=== PATIENT | male | born 1955 | race Caucasian/White ===

== ENCOUNTER → 2017-05-04 | Outpatient (REF) | payer BC ==
[2017-05-04 14:40] LABS: ALBUMIN 3.6 GM/DL (3.2-5.2); ALBUMIN/GLOBULIN RATIO 1.13 (1.00-1.93); ALKALINE PHOSPHATASE 58 U/L (45-117); ALT/SGPT 30 U/L (12-78); ANION GAP 6 MEQ/L (8-16); AST/SGOT 16 U/L (15-37); BILIRUBIN,TOTAL 0.6 MG/DL (0.2-1.0); BLOOD UREA NITROGEN 13 MG/DL (7-18); CALCIUM LEVEL 8.6 MG/DL (8.8-10.2); CARBON DIOXIDE LEVEL 29 MEQ/L (21-32); CHLORIDE LEVEL 106 MEQ/L (98-107); CHOLESTEROL LEVEL 224 MG/DL (<200); CREATININE FOR GFR 0.97 MG/DL (0.70-1.30); FREE T4 0.81 NG/DL (0.76-1.46); GLOMERULAR FILTRATION RATE > 60.0 (>49); GLUCOSE, FASTING 89 MG/DL (80-110); POTASSIUM SERUM 4.3 MEQ/L (3.5-5.1); SODIUM LEVEL 141 MEQ/L (136-145); TOTAL PROTEIN 6.8 GM/DL (6.4-8.2); TRIGLYCERIDES LEVEL 155 MG/DL (<150)
== END ==
LOC: M LABDRAW1 10:06
PROVIDERS: ATTEND Emergency Medicine
DX: E78.5 Hyperlipidemia, unspecified (principal); E03.9 Hypothyroidism, unspecified

== ENCOUNTER 2018-05-17 10:05 | Day surgery (SDC) | payer BC ==
[2018-05-17] MEDS: NS 1,000 ML IV (10:00)
[2018-05-17] MEDS ORDERED: PROPOFOL 200 MG/20 ML VIAL As Ordered (11:24)
== END 2018-05-17 11:52 | disposition home or self-care (01) ==
LOC: M OPP 10:05
DX: Z12.11 Encounter for screening for malignant neoplasm of colon (principal); K64.0 First degree hemorrhoids; D12.6 Benign neoplasm of colon, unspecified; R06.83 Snoring; Z87.891 Personal history of nicotine dependence
CPT/HCPCS: 45380

== ENCOUNTER → 2019-03-17 | Outpatient (REF) | payer BC ==
[~2019-03-17] MED LIST: VITA50005 PO
[2019-03-17 12:56] LABS: ALBUMIN 3.6 GM/DL (3.2-5.2); ALT/SGPT 33 U/L (12-78); BILIRUBIN,TOTAL 0.8 MG/DL (0.2-1.0); BLOOD UREA NITROGEN 14 MG/DL (7-18); CALCIUM LEVEL 8.3 MG/DL (8.8-10.2); CARBON DIOXIDE LEVEL 29 MEQ/L (21-32); CHLORIDE LEVEL 107 MEQ/L (98-107); CHOLESTEROL LEVEL 224 MG/DL (<200); CHOLESTEROL RISK RATIO 4.392 (<5); CREATININE FOR GFR 0.91 MG/DL (0.70-1.30); FREE T4 0.93 NG/DL (0.76-1.46); GLOMERULAR FILTRATION RATE > 60.0 (>49); GLUCOSE, FASTING 93 MG/DL (70-100); HDL CHOLESTEROL 51 MG/DL (>40); LDL CHOLESTEROL 150 MG/DL (<100); NON-HDL-C 173 MG/DL; POTASSIUM SERUM 4.3 MEQ/L (3.5-5.1); SODIUM LEVEL 141 MEQ/L (136-145); TOTAL PROTEIN 7.1 GM/DL (6.4-8.2); TRIGLYCERIDES LEVEL 113 MG/DL (<150)
== END ==
LOC: M LABDRAW1 11:36
PROVIDERS: ATTEND Physician Assistant
DX: E78.2 Mixed hyperlipidemia (principal); E03.9 Hypothyroidism, unspecified

== ENCOUNTER → 2020-04-19 | Outpatient (CLI) | payer BC, MEDICARE ==
[2020-04-19 13:04] LABS: BASO # 0.1 10^3/uL (0.0-0.2); BASO % 1.1 % (0.0-1.0); EOS # 0.4 10^3/uL (0.0-0.5); EOS % 6.4 % (0.0-3.0); HEMATOCRIT 41.9 % (42.0-52.0); HEMOGLOBIN 13.2 g/dl (13.5-17.5); LYMPH # 1.7 10^3/uL (1.5-5.0); LYMPH % 26.2 % (24.0-44.0); MEAN CORPUSCULAR HEMOGLOBIN 29.8 pg (27.0-33.0); MEAN CORPUSCULAR HGB CONC 31.5 g/dl (32.0-36.5); MEAN CORPUSCULAR VOLUME 94.6 fl (80.0-96.0); MONO # 0.6 10^3/uL (0.0-0.8); MONO % 8.7 % (0.0-5.0); NEUTROPHILS # 3.7 10^3/uL (1.5-8.5); NEUTROPHILS % 56.7 % (36.0-66.0); PLATELET COUNT, AUTOMATED 241 10^3/uL (150-450); RED BLOOD COUNT 4.43 10^6/uL (4.30-6.10); WHITE BLOOD COUNT 6.6 10^3/uL (4.0-10.0)
[2020-04-19 13:42] LABS: ALBUMIN 3.8 GM/DL (3.2-5.2); ALT/SGPT 40 U/L (12-78); BILIRUBIN,TOTAL 0.6 MG/DL (0.2-1.0); BLOOD UREA NITROGEN 13 MG/DL (7-18); CARBON DIOXIDE LEVEL 30 MEQ/L (21-32); CHLORIDE LEVEL 108 MEQ/L (98-107); CHOLESTEROL LEVEL 244 MG/DL (<200); CHOLESTEROL RISK RATIO 4.603 (<5); CREATININE FOR GFR 1.02 MG/DL (0.70-1.30); FREE T4 0.92 NG/DL (0.76-1.46); GLOMERULAR FILTRATION RATE > 60.0 (>49); GLUCOSE, FASTING 82 MG/DL (70-100); HDL CHOLESTEROL 53 MG/DL (>40); LDL CHOLESTEROL 174 MG/DL (<100); NON-HDL-C 191 MG/DL; POTASSIUM SERUM 4.7 MEQ/L (3.5-5.1); SODIUM LEVEL 141 MEQ/L (136-145); TOTAL 25(OH) VITAMIN D 22.1 NG/ML (30.0-100.0); TOTAL PROTEIN 7.4 GM/DL (6.4-8.2); TRIGLYCERIDES LEVEL 86 MG/DL (<150)
== END ==
LOC: M WUC 10:33
PROVIDERS: ATTEND Physician Assistant
DX: E03.9 Hypothyroidism, unspecified (principal); I10 Essential (primary) hypertension; E55.9 Vitamin D deficiency, unspecified; K21.9 Gastro-esophageal reflux disease without esophagitis

== ENCOUNTER → 2021-04-09 | Outpatient (CLI) | payer MEDICARE ==
[2021-04-09 17:31] LABS: ALT/SGPT 37 U/L (12-78); BILIRUBIN,TOTAL 0.4 MG/DL (0.2-1.0); BLOOD UREA NITROGEN 12 MG/DL (7-18); CARBON DIOXIDE LEVEL 27 MEQ/L (21-32); CHLORIDE LEVEL 108 MEQ/L (98-107); CHOLESTEROL LEVEL 228 MG/DL (<200); CHOLESTEROL RISK RATIO 4.145 (<5); CREATININE FOR GFR 0.88 MG/DL (0.70-1.30); FREE T4 0.91 NG/DL (0.76-1.46); GLOMERULAR FILTRATION RATE > 60.0 (>49); GLUCOSE, FASTING 93 MG/DL (70-100); HDL CHOLESTEROL 55 MG/DL (>40); LDL CHOLESTEROL 155 MG/DL (<100); NON-HDL-C 173 MG/DL; POTASSIUM SERUM 4.2 MEQ/L (3.5-5.1); SODIUM LEVEL 141 MEQ/L (136-145); TOTAL PROTEIN 7.2 GM/DL (6.4-8.2); TRIGLYCERIDES LEVEL 89 MG/DL (<150)
== END ==
LOC: M WUC 11:22
PROVIDERS: ATTEND Nurse Practitioner Family
DX: E78.2 Mixed hyperlipidemia (principal); E03.9 Hypothyroidism, unspecified; I10 Essential (primary) hypertension

== ENCOUNTER → 2021-08-19 | Outpatient (CLI) | payer MEDICARE ==
[~2021-08-19] MED LIST changes: +OMEP-221 PO
--- NOTE | 2021-08-19 14:54 | REP ---
INDICATION: HX OF NICOTINE DEPENDENCE. COMPARISON: 05/09/2020 also low-dose screening CT of the lungs TECHNIQUE: Axial noncontrast images from the thoracic inlet to the upper abdomen using low-dose lung screening technique (LDCT). As per the protocol only lung window images were sent to the read station for interpretation. FINDINGS: No abnormal nodules have developed. There are a few curvilinear densities in the lung bases likely subsegmental atelectatic changes. Grossly, the mediastinum and pulmonary peggy are unchanged. Grossly, the imaged upper abdomen and imaged osseous structures are unchanged. IMPRESSION: Stable lung rads category 1 exam. No abnormal nodules. Follow-up in 1 year. <Electronically signed by Maik Benavides > 08/19/21 0696
== END ==
LOC: M RAD 12:10
PROVIDERS: ATTEND Nurse Practitioner Family
DX: Z12.2 Encounter for screening for malignant neoplasm of respiratory organs (principal); Z87.891 Personal history of nicotine dependence

== ENCOUNTER → 2021-08-21 | Outpatient (CLI) | payer MEDICARE | LOC: M LABSMTC 10:11 | PROVIDERS: ATTEND Anesthesiology | DX: Z01.812 Encounter for preprocedural laboratory examination (principal); Z20.822 Contact with and (suspected) exposure to COVID-19 ==

== ENCOUNTER 2021-08-26 09:38 | Day surgery (SDC) | payer MEDICARE ==
[~2021-08-26] VITALS: Ht 185.4 cm; Wt 101.6 kg
[~2021-08-26 09:38] MED LIST changes: +NS 1,000 ML IV ONE
--- OUTSIDE RECORDS SUMMARY | 2021-08-26 09:41 | CCD | Continuity of Care Document ---
Author Author Julian [facility] Organization Unknown Address [address] [place] [address] Phone [phone] Care Team Providers Care Educational Psychology Teacher Name Role Phone [facility] - [facility] [phone] Problems Active Problems Provider Date Mixed hyperlipidemia Marko Spence M.D. Onset: 01/02 Tobacco user Jose Cao PA Onset: 01/02/2011 Gastroesophageal reflux disease Marko Spence M.D. O nset: 06/06/2013 Testicular hypofunction Marko Spence M.D. Onset: Hypothyroidism Marko Spence M.D. Onset: 2012 Vitamin D deficiency Marko Spence M.D. Onset: 10/30 Social History Type Date Description Comments Sex Unknown Tobacco Use Start: Unknown End: Unknown Current Ciga rette Smoker Packs Daily 1/2 Tobacco Use Start: Unknown Never Used Smokeless Tobacco ETOH Use Consumes 6 beers per week Tobacco Use Start: Unknown End: Unknown Patient is a former smoker quit 08/06 Recreational Drug Use Never Used Drugs Smoking Status Reviewed: 05/28/21 Patient is a former smoker qu it 08/06 Exercise Type/Frequency Exercises regularly Sun Exposure Minimum amount of sun exposure Seat Belt/Car Seat Always uses seat belt Guns in Home Yes, Locked Up Smoke Alarms Yes Smoke Alarms Carbon Monoxide Detector: Yes Allergies, Adverse Reactions, Alerts Active Allergies Criticality Reaction | Severity Comments Date NKDA Unable to assess criticality 08/29/2005 Environmental Unable to assess criticality pollen 05/07/2010 Medications Active Medications SIG Qnty Indications Ordering Provide r Date Omeprazole 40mg Capsules DR take one capsule by mouth every day for heartburn/acid reflux as needed 90caps K21.9 Rosie Luna, STUDENT LIFE VICE PRESIDENT 03/31/2019 History Medications Amoxicillin/Clavulanate Potassium 875-125mg Tablets 1 by mouth twice a day for 10 days 20tabs H66.92 Swapna cespedes RosieLEANN 05/28/2021 - 06/07/2021 Immunizations CPT Code Status Date Vaccine Lot # [id number] Given 08/02/2021 Influenza Virus Vaccine, Rodrigo drivalent,multidose vial [id number] Given 08/02/2021 Influenza Virus Vaccine, Rodrigo drivalent,multidose vial [id number] 15129 Given 04/15/2021 Pneumococcal Vaccine [id number] 84975 Given 01/23/2021 Covid-19 Sadi & Sadi [id number] Given 04/23/2020 Prevnar 13 For Adults [id number] [id number] Given 07/27/2019 Influenza Virus Vaccine, Rodrigo drivalent,multidose vial [id number] 67586 Given 02/03/2017 Boostrix (Tdap) Tetnus, Diphtheria Toxoids & Acellular Pertussis [id number] Vital Signs Date Vital Result Comment 08/02/2021 12:24pm Body Temperature 97.8 F 05/28/2021 3:18pm BP Systolic 133 mmHg BP Diastolic 71 mmHg Heart Rate 55 /min Body Temperature 97.8 F Respiratory Rate 16 /min Height 72.75 inches 6'0.75" Weight 226.38 lb O2 % BldC Oximetry 98 % Peak Expiratory Flow Rate 534 Estimated Peak Flow Rate [place] Body Weight 178 lb BMI (Body Mass Index) 30.1 kg/m2 Results Test Acquired Date Facility Test Result H/L Range Note TSH And T4 Free ([facility]) 04/09/2021 [facility] [phone] Thyroid Stimulating Hormone 2.320 uIU/ML Normal 0. 358-3.740 Free T4 0.91 ng/dL Normal 0.76-1.46 Comprehensive Metabolic Profil 04/09/2021 [facility] [phone] Glucose, Fasting 93 mg/dL Normal 70-100 Blood Urea Nitrogen 12 mg/dL Normal 7-18 Creatinine For GFR 0.88 mg/dL Normal 0.70-1.30 Glomerular Filtration Rate > 60.0 Normal >49 1 Sodium Level 141 mEq/L Normal 136-145 Potassium Serum 4.2 mEq/L Normal 3.5-5.1 Chloride Level 108 mEq/L High 98-107 Carbon Dioxide Level 27 mEq/L Normal 21-32 Anion Gap 6 mEq/L Low 8-16 Calcium Level 9.0 mg/dL Normal 8.8-10.2 Ast/Sgot 24 U/L Normal 7-37 Alt/SGPT 37 U/L Normal 12-78 Alkaline Phosphatase 58 U/L Normal 45-117 Bilirubin,Total 0.4 mg/dL Normal 0.2-1.0 Total Protein 7.2 GM/DL Normal 6.4-8.2 Albumin 4.0 GM/DL Normal 3.2-5.2 Albumin/Globulin Ratio 1.3 Normal Lipid Panel 04/09/2021 [facility] nter [phone] Triglycerides Level 89 mg/dL Normal <150 Cholesterol Level 228 mg/dL High <200 HDL Cholesterol 55 mg/dL Normal >40 LDL Cholesterol 155 mg/dL High <100 Non-HDL-C 173 mg/dL Normal Cholesterol Risk Ratio 4.145 Normal <5 1 Units are mL/min/1.73 m2 Chronic Kidney Disease Staging per NKF: Stage I & II GFR >=60 Normal to Mildly Decreased Stage III GFR 30-59 Moderately Decreased Stage IV GFR 15-29 Severely Decreased Stage V GFR <15 Very Little GFR Left ESRD GFR <15 on TELEPHOTO ENGINEER Procedures Date Code Description Status 05/28/2021 25642 Office/Outpatient Established Lo w MDM 20-29 Min Completed 04/15/2021 00262 Office/Outpatient Established Mo d MDM 30-39 Min Completed Medical Devices Description No Information Available Encounters Type Date Location Provider Dx Diagnosis Office Visit 05/28/2021 3:45p Main Office Rosie Luna FNP H66.9 2 Otitis media, unspecified, left ear Office Visit 04/15/2021 10:15a Main Office Rosie Luna FNP Z00.0 0 Encntr for general adult medical exam w/o abnormal findings E78.2 Mixed hyperlipidemia K21.9 Gastro-esophageal reflux dis ease without esophagitis M17.11 Unilateral primary osteoarth ritis, right knee Z23 Encounter for immunization Assessments Date Code Description Provider 05/28/2021 H66.92 Otitis media, unspecified, left ear Rosie Luna FNP 04/15/2021 Z00.00 Encounter for genera l adult medical examination without abnormal findings Rosie Luna FNP 04/15/2021 E78.2 Mixed hyperlipidemia Jessica Luna FNP 04/15/2021 K21.9 Gastro-esophageal reflux disease without esophagitis Rosie Luna FNP 04/15/2021 M17.11 Unilateral primary osteoarthriti s, right knee Rosie Luna FNP 04/15/2021 Z23 Encounter for immunization Rosie Orozco FNP Plan of Treatment Future Appointment(s):* 04/16/2022 10:15 am - Rosie Luna FNP at Main Office Functional Status Functional Condition Comment Date Status Independent with all ADL's Activ e .None Active Independent with all IADL's Acti ve Mental Status Mental Condition Comment Date Status None Active Referrals Description No Information Available
--- OUTSIDE RECORDS SUMMARY | 2021-08-26 09:41 | CCD ---
Continuity of Care Document (CCD) Created on: 05/28/2021 MylesJulian lee External Reference #: [id number] : [id number] Sex: Male Author Author Julian [facility] Organization Unknown Address [address] [place] [address] Phone [phone] Care Team Providers Care Carding Machine Feeder Name Role Phone [facility] - [facility] [phone] Problems Active Problems Provider Date Mixed hyperlipidemia [...] Yes Allergies, Adverse Reactions, Alerts Active Allergies Reaction Severity Comments Date NKDA 08/29/2005 Environmental pollen 05/07/2010 Medications Active Medications SIG Qnty Indications Ordering Provide r Date Amoxicillin/Clavulanate Potassium 875-125mg Tablets 1 by mouth twice a day for 10 days 20tabs H66.92 Rosie Barcenas ch, FNP 05/28/[address] take one capsule by mouth every day for heartburn/acid reflux as needed 90caps K21.9 Rosie Luna FNP 03/31/2019 Immunizations CPT Code Status Date Vaccine Lot # [id number] Given 04/15/2021 Pneumococcal Vaccine [id number] Given 01/23/2021 Covid-19 Sadi & Sadi 51837 Given 04/23/2020 Prevnar 13 For Adults [id number] 53341 Given 07/27/2019 Influenza Virus Vaccine, Quadrivalent,age 3 and up,multidose vial [id number] 51155 Given 02/03/2017 Boostrix (Tdap) Tetnus, Diphtheria Toxoids & Acellular Pertussis [id number] Vital Signs Date Vital Result Comment 05/28/2021 3:18pm BP Systolic 133 mmHg BP Diastolic 71 mmHg Heart Rate 55 /min Body Temperature 97.8 F Respiratory Rate 16 /min Height 72.75 inches 6'0.75" Weight 226.38 lb O2 % BldC Oximetry 98 % Peak Expiratory Flow Rate 534 Estimated Peak Flow Rate [place] Body Weight 178 lb BMI (Body Mass Index) 30.1 kg/m2 04/15/2021 10:12am BP Systolic 122 mmHg BP Diastolic 72 mmHg Heart Rate 56 /min Body Temperature 97.0 F Respiratory Rate 17 /min Height 72.75 inches 6'0.75" Weight 225.12 lb O2 % BldC Oximetry 99 % Peak Expiratory Flow Rate 534 Estimated Peak Flow Rate [place] Body Weight 178 lb BMI (Body Mass Index) 29.9 kg/m2 Results Test Acquired Date Facility Test Result H/L Range Note TSH And T4 Free ([facility]) 04/09/2021 [facility] [phone] Thyroid Stimulating Hormone 2.320 uIU/ML Normal 0. 358-3.740 Free T4 0.91 ng/dL Normal 0.76-1.46 Comprehensive Metabolic Profil 04/09/2021 [facility] [phone] Glucose, Fasting 93 mg/dL Normal 70-100 Blood [...] Albumin/Globulin Ratio 1.3 Normal Lipid Panel 04/09/2021 [facility] nter [phone] Triglycerides Level 89 mg/dL Normal <150 Cholesterol [...] Little GFR Left ESRD GFR <15 on PUBLIC BATH ATTENDANT Procedures Date Code Description Status 05/28/2021 45609 Office/Outpatient Established Lo w MDM 20-29 Min Completed 04/15/2021 50962 Office/Outpatient Established Mo d MDM 30-39 Min [...] adult medical examination without abnormal findings Rosie Luan FNP 04/15/2021 E78.2 Mixed hyperlipidemia Jessica Luna FNP 04/15/2021 K21.9 Gastro-esophageal reflux disease without esophagitis Rosie Luna FNP 04/15/2021 M17.11 Unilateral primary osteoarthriti s, right knee Rosie Luna FNP 04/15/2021 Z23 Encounter for immunization Rosie Orozco FNP Plan of Treatment Future Appointment(s):* 04/16/2022 10:15 am - Rosie Luna FNP at Main Office 05/28/2021 - Rosie Luna FNP* H66.92 Otitis media, unspecified, left ear* New Medication:* Amoxicillin/Clavulanate Potassium 875-125 mg - 1 by mouth twice a day for 10 days Functional Status Functional Condition Comment Date Status Independent with all ADL's Activ e .None Active Independent with all IADL's Acti ve Mental Status Mental Condition Comment Date Status None Active Referrals Description No Information Available
--- OUTSIDE RECORDS SUMMARY | 2021-08-26 09:41 | CCD ---
Author Author [facility] Organization [facility] Address Unknown Phone Unavailable Care Team Providers Care Personal Vehicle Advisor Name Role Phone Pleskach, Rosie NUT SORTER Unavailable Unavailable Pleskach, Rosie NUT SORTER Unavailable Unavailable Pleskach, Rosie NUT SORTER Unavailable Unavailable Pleskach, Rosie NUT SORTER Unavailable Unavailable Pleskach, Rosie NUT SORTER Unavailable Unavailable Pleskach, Rosie NUT SORTER Unavailable Unavailable Pleskach, Rosie NUT SORTER Unavailable Unavailable Pleskach, Rosie NUT SORTER Unavailable Unavailable Pleskach, Rosie NUT SORTER Unavailable Unavailable Pleskach, Rosie NUT SORTER Unavailable Unavailable Pleskach, Rosie NUT SORTER Unavailable Unavailable Pleskach, Rosie NUT SORTER Unavailable Unavailable Pleskach, Rosie NUT SORTER Unavailable Unavailable Pleskach, Rosie NUT SORTER Unavailable Unavailable Pleskach, Rosie NUT SORTER Unavailable Unavailable Pleskach, Rosie NUT SORTER Unavailable Unavailable Pleskach, Rosie NUT SORTER Unavailable Unavailable Pleskach, Rosie NUT SORTER Unavailable Unavailable Pleskach, Rosie NUT SORTER Unavailable Unavailable Pleskach, Rosie NUT SORTER Unavailable Unavailable Pleskach, Rosie NUT SORTER Unavailable Unavailable Pleskach, Rosie NUT SORTER Unavailable Unavailable Pleskach, Rosie NUT SORTER Unavailable Unavailable Pleskach, Rosie NUT SORTER Unavailable Unavailable Pleskach, Rosie NUT SORTER Unavailable Unavailable Pleskach, Rosie NUT SORTER Unavailable Unavailable Pleskach, Rosie NUT SORTER Unavailable Unavailable Pleskach, Rosie NUT SORTER Unavailable Unavailable Pleskach, Rosie NUT SORTER Unavailable Unavailable Pleskach, Rosie NUT SORTER Unavailable Unavailable Pleskach, Rosie NUT SORTER Unavailable Unavailable Pleskach, Rosie NUT SORTER Unavailable Unavailable Pleskach, Rosie NUT SORTER Unavailable Unavailable Pleskach, Rosie NUT SORTER Unavailable Unavailable Pleskach, Rosie NUT SORTER Unavailable Unavailable Pleskach, Rosie NUT SORTER Unavailable Unavailable Pleskach, Rosie NUT SORTER Unavailable Unavailable Pleskach, Rosie NUT SORTER Unavailable Unavailable Pleskach, Rosie NUT SORTER Unavailable Unavailable Pleskach, Rosie NUT SORTER Unavailable Unavailable Pleskach, Rosie NUT SORTER Unavailable Unavailable Pleskach, Rosie NUT SORTER Unavailable Unavailable Pleskach, Rosie NUT SORTER Unavailable Unavailable Pleskach, Rosie NUT SORTER Unavailable Unavailable Re-disclosure Warning The records that you are about to access may contain information from federally-assisted alcohol or drug abuse programs. If such information is present, then the following federally mandated warning applies: This information has been disclosed to you from records protected by federal confidentiality rules (42 CFR part 2). The federal rules prohibit you from making any further disclosure of this information unless further disclosure is expressly permitted by the written consent of the person to whom it pertains or as otherwise permitted by 42 CFR part 2. A general authorization for the release of medical or other information is NOT sufficient for this purpose. The Federal rules restrict any use of the information to criminally investigate or prosecute any alcohol or drug abuse patient.The records that you are about to access may contain highly sensitive health information, the redisclosure of which is protected by Article 27-F of the [facility] Public Health law. If you continue you may have access to information: Regarding HIV / AIDS; Provided by facilities licensed or operated by the [facility] Office of Mental Health; or Provided by the [facility] Office for People With Developmental Disabilities. If such information is present, then the following [facility] mandated warning applies: This information has been disclosed to you from confidential records which are protected by state law. State law prohibits you from making any further disclosure of this information without the specific written consent of the person to whom it pertains, or as otherwise permitted by law. Any unauthorized further disclosure in violation of state law may result in a fine or penitentiary sentence or both. A general authorization for the release of medical or other information is NOT sufficient authorization for further disc losure. Family History Family Member Name Family Member Gender Family Member Status Date o f Status Description Data Source(s) Unknown Unknown Problem [facility] ([facility] Unknown Unknown Problem [facility] ([facility]) Encounters Encounter Providers Location Date Indications Data Source(s ) Outpatient Attender: Rosie Luna [facility] Main Office 05/28/2021 0 3:45:00 PM EDT [facility] ([facility] Outpatient Attender: Rosie Luna [facility] Main Office 04/15/2021 1 0:15:00 AM EDT [facility] ([facility] Immunizations Vaccine Date Status Description Data Source(s) New in 2012. IIV4 08/02/2021 12:46:00 PM EDT completed [facility] ([facility] New in 2012. IIV4 08/02/2021 12:36:00 PM EDT completed [facility] ([facility] pneumococcal polysaccharide PPV23 04/15/2021 10:43:00 AM EDT comple jennifer [facility] ([facility] Covid-19 Sadi & Sadi 01/23/2021 10:24:00 AM EDT completed [facility] ([facility] Medications Medication Brand Name Start Date Product Form Dose Route Admi nistrative Instructions Pharmacy Instructions Status Indications Reaction Description Data Source(s) Amoxicillin 875 MG / Clavulanate 125 MG Oral Tablet 87 5-125 mg AMOXICILLIN/POTASSIUM CLAV 05/28/2021 12:00:00 AM EDT tablet 20 TAKE ONE TABLET BY MOUTH TWICE A DAY FOR 10 DAYS TAKE ONE TABLET BY MOUTH TWICE A DAY FOR 10 DAYS SOLD: 05/28/2021 [facility] Amoxicillin 875 MG / Clavulanate 125 MG Oral Tablet Am oxicillin/Clavulanate Potassium 05/28/2021 12:00:00 AM EDT ORAL completed [facility] ([facility] Insurance Providers Payer name Policy type / Coverage type Policy ID Covered alliance party ID Covered alliance party's relationship to hernández Policy Hernández Plan Information [facility] 306/806 [id number] SP [id number] BCBS [facility] 302/307 [id number] SP [id number] BS Of [facility] [place] [place] [id number] Self [id number] BCBS [facility] 302/307 [id number] SP [id number] BS Of [facility] [id number] Self V [id number] BS Of [facility] [place] [place] [id number] Self [id number] MEDICARE BLUE PPO 306 [id number] SP [id number] BS Of [facility] [place] [place] [id number] Self [id number] BS Of [facility] [place] [place] [id number] Self EXCELLUS BCBS P [id number] S [id number] BS Of [facility] [place] [place] [id number] Self [id number] MEDICARE BLUE O 306 [id number] SP [id number] EXCELLUS BCBS B [id number] S [id number] BCBS [facility] 302/307 [id number] SP [id number] Problems, Conditions, and Diagnoses No Information Surgeries/Procedures Procedure Description Date Indications Data Source(s) OFFICE OUTPATIENT VISIT 15 MINUTES 05/28/2021 12:00:00 AM EDT [facility] ([facility] OFFICE OUTPATIENT VISIT 25 MINUTES 04/15/2021 12:00:00 AM EDT [facility] Results ID Date Data Source [id number] 08/21/2021 10:15:00 AM EDT [facility] Name Value Range Interpretation Code Description Data Augustina rce(s) Supporting Document(s) SARS-CoV-2 (COVID-19) RNA [Presence] in Respiratory specimen by KEYONNA with probe detection Not Detected [facility] This lab was ordered by [facility] and reported by [employer] ID Date Data Source [id number] 04/09/2021 11:23:00 AM EDT [facility] Name Value Range Interpretation Code Description Data Augustina rce(s) Supporting Document(s) Triglycerides Level 89 mg/dL [facility] Cholesterol Level 228 mg/dL [facility] HDL Cholesterol 55 mg/dL [facility] Non-HDL-C 173 mg/dL [facility] LDL Cholesterol 155 mg/dL [facility] Cholesterol Risk Ratio 4.145 [facility] ID Date Data Source [id number] 04/09/2021 11:23:00 AM EDT [facility] Name Value Range Interpretation Code Description Data Augustina rce(s) Supporting Document(s) Glucose, Fasting 93 mg/dL 70-100 [facility] Blood Urea Nitrogen 12 mg/dL 7-18 [facility] ([facility] Glomerular Filtration Rate Laboratory test result [facility] ([facility] <content>Units are mL/min/1.73 m2</content>
<content></content>
<content>Chronic Kidney Disease Staging per NKF:</content>
<content></content>
<content>Stage I & II GFR >=60 Normal to Mildly Decreased</content>
<content>Stage III GFR 30- 59 Moderately Decreased</content>
<content>Stage IV GFR 15-29 Severely Decreased</content>
<content>Stage V GFR <15 Very Little GFR Left</content>
<content>ESRD GFR <15 on ACCOUNT SERVICE ASSOCIATE</content>
<content></content> Creatinine For GFR 0.88 mg/dL 0.70-1.30 [facility] Potassium Serum 4.2 meq/L 3.5-5.1 [facility] ([facility] Sodium Level 141 meq/L 136-145 [facility] Carbon Dioxide Level 27 meq/L 21-32 [facility] ([facility] Anion Gap 6 meq/L 8-16 [facility] Chloride Level 108 meq/L 98-107 [facility] Ast/Sgot 24 U/L 7-37 [facility] Calcium Level 9.0 mg/dL 8.8-10.2 [facility] Bilirubin,Total 0.4 mg/dL 0.2-1.0 [facility] Alt/SGPT 37 U/L 12-78 [facility] Alkaline Phosphatase 58 U/L 45-117 [facility] Total Protein 7.2 GM/DL 6.4-8.2 [facility] ([facility] Albumin 4.0 GM/DL 3.2-5.2 [facility] Albumin/Globulin Ratio 1.3 [facility] ([facility] ID Date Data Source [id number] 04/09/2021 11:23:00 AM EDT [facility] Name Value Range Interpretation Code Description Data Augustnia rce(s) Supporting Document(s) Thyrotropin [Units/volume] in Serum or Plasma 2.320 uIU/ML 0.358-3.74 0 [facility] ([facility] Thyroxine (T4) free [Mass/volume] in Serum or Plasma 0.91 ng/dL 0.76- 1.46 [facility] ([facility] Procedure Social History Code Duration Value Status Description Data Source(s ) Smoking 08/02/2021 12:00:00 AM EDT Patient is a former smoker completed Patient is a former smoker [facility] Vital Signs ID Date Data Source UNK Name Value Range Interpretation Code Description Data Source(s) Body temperature 97.8 [degF] 97.8 [degF] [facility] Systolic blood pressure 133 mm[Hg] 133 mm[Hg] M [facility]ENT ([facility] Body temperature 97.8 [degF] 97.8 [degF] [facility] Diastolic blood pressure 71 mm[Hg] 71 mm[Hg] [facility] Heart rate 55 /min 55 /min [facility] Respiratory rate 16 /min 16 /min [facility] ( [facility] Body height 72.75 [in_i] 72.75 [in_i] [facility] ([facility] 6'0.75" Body weight 226.38 [lb_av] 226.38 [lb_av] MED[facility] T ([facility] Oxygen saturation in Arterial blood by Pulse oximetry 98 % 98 % [facility] [place] body weight 178 [lb_av] 178 [lb_av] MED[facility] T ([facility] Body mass index (BMI) [Ratio] 30.1 kg/m2 30.1 k g/m2 [facility] Systolic blood pressure 122 mm[Hg] 122 mm[Hg] M EDENT ([facility] Diastolic blood pressure 72 mm[Hg] 72 mm[Hg] [facility] Heart rate 56 /min 56 /min [facility] Body temperature 97.0 [degF] 97.0 [degF] [facility] Respiratory rate 17 /min 17 /min [facility] ( [facility] Body height 72.75 [in_i] 72.75 [in_i] [facility] ([facility] 6'0.75" Body weight 225.12 [lb_av] 225.12 [lb_av] MEDEN T ([facility] Oxygen saturation in Arterial blood by Pulse oximetry 99 % 99 % MEDDAVID ([facility] [place] body weight 178 [lb_av] 178 [lb_av] MAURICIO Roche ([facility] Body mass index (BMI) [Ratio] 29.9 kg/m2 29.9 k g/m2 SH[facility]PA ([facility]
--- OUTSIDE RECORDS SUMMARY | 2021-08-26 09:41 | CCD | Continuity of Care Document ---
Author Author [facility] Organization Unknown Address [address] [place] [address] Phone [phone] Care Team Providers Care Supervisor Cytology Name Role Phone [employer] [facility] - [facility] [phone] Problems Active Problems Provider Date Mixed hyperlipidemia [...] Use Never Used Drugs Smoking Status Reviewed: 08/02/21 Patient is a former smoker qu it [...] reflux as needed 90caps K21.9 Rosie Luna, POWER WHEELCHAIR MECH[employer]IC 03/31/2019 History Medications Amoxicillin/Clavulanate Potassium 875-125mg Tablets 1 by mouth twice a day for 10 days 20tabs H66.92 Swapna Rosie cespedesLEANN 05/28/2021 - 06/07/2021 Immunizations CPT Code Status Date Vaccine Lot # [id number] Given 08/02/2021 Influenza Virus Vaccine, Rodrigo drivalent,multidose vial [id number] Given 04/15/2021 Pneumococcal Vaccine [id number] 91682 Given 01/23/2021 Covid-19 Sadi & Sadi 61844 Given 04/23/2020 Prevnar 13 For Adults [id number] 23857 Given 07/27/2019 Influenza Virus Vaccine, Rodrigo drivalent,multidose vial [id number] 88725 Given 02/03/2017 Boostrix (Tdap) Tetnus, Diphtheria Toxoids [...] Flow Rate 534 Estimated Peak Flow Rate [place] Body Weight 178 lb BMI (Body Mass Index) 30.1 kg/m2 Results Test Acquired Date Facility Test Result H/L Range Note TSH And T4 Free ([facility]) 04/09/2021 [facility] [phone] Thyroid Stimulating Hormone 2.320 uIU/ML Normal 0. 358-3.740 Free T4 0.91 ng/dL Normal 0.76-1.46 Comprehensive Metabolic Profil 04/09/2021 [facility] [phone] Glucose, Fasting 93 mg/dL Normal 70-100 Blood [...] Albumin/Globulin Ratio 1.3 Normal Lipid Panel 04/09/2021 [facility] nter [phone] Triglycerides Level 89 mg/dL Normal <150 Cholesterol [...] Little GFR Left ESRD GFR <15 on [employer] Procedures Date Code Description Status 05/28/2021 99866 Office/Outpatient Established Lo w MDM 20-29 Min Completed 04/15/2021 75934 Office/Outpatient Established Mo d MDM 30-39 Min [...] for immunization Assessments Date Code Description Provider 08/02/2021 Z23 Encounter for immunization Rosie Orozco FNP 05/28/2021 H66.92 Otitis media, unspecified, left ear Pleskach, Rosie, POWER WHEELCHAIR MECHANIC 04/15/2021 Z00.00 Encounter for genera l adult [...]
--- OUTSIDE RECORDS SUMMARY | 2021-08-26 09:41 | CCD | Continuity of Care Document ---
Author Author Julian [facility] Organization Unknown Address [address] [place] [address] Phone [phone] Care Team Providers Care Executive Staff Assistant Name Role Phone [facility] - [facility] [phone] Problems Active Problems Provider Date Mixed hyperlipidemia [...] twice a day for 10 days 20tabs J01.90 Rosie Barcenas ch, FNP 05/28/[address] take one capsule by mouth every day for heartburn/acid reflux as needed 90caps K21.9 Rosie Luna FNP 03/31/2019 Immunizations CPT Code Status Date Vaccine Lot # [id number] Given 04/15/2021 Pneumococcal Vaccine [id number] 42575 Given 01/23/2021 Covid-19 Sadi & Sadi 81114 Given 04/23/2020 Prevnar 13 For Adults [id number] [id number] Given 07/27/2019 Influenza Virus Vaccine, Quadrivalent,age 3 and up,multidose vial [id number] 04632 Given 02/03/2017 Boostrix (Tdap) Tetnus, Diphtheria Toxoids & Acellular Pertussis [id number] Vital Signs Date Vital Result Comment 05/28/2021 3:18pm BP Systolic 133 mmHg BP Diastolic 71 mmHg Heart Rate 55 /min Body Temperature 97.8 F Respiratory Rate 16 /min Height 72.75 inches 6'0.75" Weight 226.38 lb O2 % BldC Oximetry 98 % Peak Expiratory Flow Rate 534 Estimated Peak Flow Rate [place] Body Weight 178 lb BMI (Body Mass Index) 30.1 kg/m2 04/15/2021 10:12am BP Systolic 122 mmHg BP Diastolic 72 mmHg Heart Rate 56 /min Body Temperature 97.0 F Respiratory Rate 17 /min Height 72.75 inches 6'0.75" Weight 225.12 lb O2 % BldC Oximetry 99 % Peak Expiratory Flow Rate 534 Estimated Peak Flow Rate [place] Body Weight 178 lb BMI (Body Mass Index) 29.9 kg/m2 Results Test Acquired Date Facility Test Result H/L Range Note TSH And T4 Free ([facility]) 04/09/2021 [facility] [phone] Thyroid Stimulating Hormone 2.320 uIU/ML Normal 0. 358-3.740 Free T4 0.91 ng/dL Normal 0.76-1.46 Comprehensive Metabolic Profil 04/09/2021 [facility] [phone] Glucose, Fasting 93 mg/dL Normal 70-100 Blood [...] Albumin/Globulin Ratio 1.3 Normal Lipid Panel 04/09/2021 [facility] nter [phone] Triglycerides Level 89 mg/dL Normal <150 Cholesterol [...] Little GFR Left ESRD GFR <15 on INTEGRATED MARKETING SPECIALIST Procedures Date Code Description Status 04/15/2021 73929 Office/Outpatient Established Mo d MDM 30-39 Min Completed Medical Devices Description No Information Available Encounters Type Date Location Provider Dx Diagnosis Office Visit 04/15/2021 10:15a Main Office Rosie Luna FNP Z00.0 0 Encntr for general adult medical exam w/o abnormal findings E78.2 Mixed hyperlipidemia K21.9 Gastro-esophageal reflux dis ease without esophagitis M17.11 Unilateral primary osteoarth ritis, right knee Z23 Encounter for immunization Assessments Date Code Description Provider 05/28/2021 J01.90 Acute sinusitis, unspecified Rosie Carranza FNP 04/15/2021 Z00.00 Encounter for genera l [...] Main Office 05/28/2021 - Rosie Luna FNP* J01.90 Acute sinusitis, unspecified* New Medication:* Amoxicillin/Clavulanate Potassium 875-125 mg - 1 by mouth twice a day for 10 days Functional Status Functional Condition Comment Date Status Independent with all ADL's Activ e .None Active Independent with all IADL's Acti ve Mental Status Mental Condition Comment Date Status None Active Referrals Description No Information Available
[2021-08-26] MEDS ORDERED: LIDOCAINE 2% 100MG/5ML SDV (FOR ANES.) As Ordered ONE (10:45)
[2021-08-26] MEDS ORDERED: propofoL 200 MG/20 ML VIAL As Ordered ONE (10:45)
[2021-08-26] MEDS ORDERED: SIMETHICONE 40MG/0.6ML DROPS 30ML As Ordered ONE (11:11)
--- NOTE | 2021-08-26 11:26 | ROOR ---
Patient Name: Julian Bueno Procedure Date: 08/26/2021 11:08 AM Date of : 1955 Age: 66 Room: [facility] Gender: Male Note Status: Finalized Procedure: Total Colonoscopy to Cecum Indications: High risk colon cancer surveillance: Personal history of colonic polyps, Last colonoscopy: 2017 Providers: Pan Max MD Referring MD: GAYATRI Mendoza Requesting Provider: Medicines: Monitored Anesthesia Care Complications: No immediate complications. Procedure: Pre-Anesthesia Assessment: - The heart rate, respiratory rate, oxygen saturations, blood pressure, adequacy of pulmonary ventilation, and response to care were monitored throughout the procedure. The Colonoscope was introduced through the anus and advanced to the cecum, identified by appendiceal orifice and ileocecal valve. The colonoscopy was performed without difficulty. The patient tolerated the procedure well. The quality of the bowel preparation was good. Findings: The perianal and digital rectal examinations were normal. Scattered small-mouthed diverticula were found in the recto-sigmoid colon, sigmoid colon and descending colon. The exam was otherwise without abnormality on direct and retroflexion views. Impression: - Diverticulosis in the recto-sigmoid colon, in the sigmoid colon and in the descending colon. - The examination was otherwise normal on direct and retroflexion views. - No specimens collected. - The exam was otherwise normal to the cecum. Recommendation: - Patient has a contact number available for emergencies. The signs and symptoms of potential delayed complications were discussed with the patient. Return to normal activities tomorrow. Written discharge instructions were provided to the patient. - High fiber diet. - Discharge patient to home. - Continue present medications. - Repeat colonoscopy in 5 years for surveillance. - Return to referring physician. - The findings and recommendations were discussed with the patient. Procedure Code(s): --- Professional --- G0105, Colorectal cancer screening; colonoscopy on individual at high risk Diagnosis Code(s): --- Professional --- Z86.010, Personal history of colonic polyps K57.30, Diverticulosis of large intestine without perforation or abscess without bleeding CPT copyright 2019 [employer]. All rights reserved. The codes documented in this report are preliminary and upon hospital coordinator review may be revised to meet current compliance requirements. Pan Max MD Pan Max MD 08/26/2021 11:26:16 AM Electronically signed by Pan Max MD Number of Addenda: 0 Note Initiated On: 08/26/2021 11:08 AM Estimated Blood Loss: Estimated blood loss: none.
[2021-08-26 11:44] VITALS: BP 133/89
== END 2021-08-26 11:55 | disposition home or self-care (01) ==
LOC: M OPP 09:38
PROVIDERS: ATTEND Internal Medicine Gastroenterology
DX: K57.30 Diverticulosis of large intestine without perforation or abscess without bleeding (principal); Z86.010 Personal history of colon polyps

== ENCOUNTER → 2022-04-04 | Outpatient (CLI) | payer MEDICARE ==
[~2022-04-04] MED LIST changes: -NS 1,000 ML IV ONE; -OMEP-221 PO; +OMEP40CA5 PO
[2022-04-04 15:26] LABS: ALBUMIN 3.7 GM/DL (3.2-5.2); ALT/SGPT 33 U/L (12-78); BILIRUBIN,TOTAL 0.4 MG/DL (0.2-1.0); BLOOD UREA NITROGEN 14 MG/DL (7-18); CALCIUM LEVEL 9.4 MG/DL (8.8-10.2); CARBON DIOXIDE LEVEL 29 MEQ/L (21-32); CHLORIDE LEVEL 108 MEQ/L (98-107); CHOLESTEROL LEVEL 238 MG/DL (<200); CHOLESTEROL RISK RATIO 4.576 (<5); CREATININE FOR GFR 0.99 MG/DL (0.70-1.30); GLOMERULAR FILTRATION RATE > 60.0 (>49); GLUCOSE, FASTING 106 MG/DL (70-100); HDL CHOLESTEROL 52 MG/DL (>40); LDL CHOLESTEROL 163 MG/DL (<100); NON-HDL-C 186 MG/DL; SODIUM LEVEL 144 MEQ/L (136-145); TOTAL PROTEIN 7.1 GM/DL (6.4-8.2); TRIGLYCERIDES LEVEL 116 MG/DL (<150)
== END ==
LOC: M WUC 08:40
PROVIDERS: ATTEND Nurse Practitioner Family
DX: E78.2 Mixed hyperlipidemia (principal)

== ENCOUNTER 2022-05-14 12:19 | Emergency (ER) | payer MEDICARE, SELFPAY ==
[~2022-05-14] VITALS: Ht 185.4 cm; Wt 101.9 kg
[2022-05-14] MEDS ORDERED: METH-1164 PO (15:04)
[2022-05-14] MEDS ORDERED: NAPR-837 PO (15:04)
[2022-05-14 15:06] VITALS: BP 124/77
== END 2022-05-14 15:13 | disposition home or self-care (01) ==
LOC: M ED 12:19
DX: S00.03XA Contusion of scalp, initial encounter (principal); W01.198A Fall on same level from slipping, tripping and stumbling with subsequent striking against other object, initial encounter; Y93.73 Activity, racquet and hand sports; M62.830 Muscle spasm of back

== ENCOUNTER → 2022-08-26 | Outpatient (CLI) | payer MEDICARE ==
[~2022-08-26] MED LIST changes: +METH-1164 PO; +NAPR-837 PO
== END ==
LOC: M RAD 14:25
PROVIDERS: ATTEND Nurse Practitioner Family
DX: Z87.891 Personal history of nicotine dependence (principal)

== ENCOUNTER → 2023-04-15 | Outpatient (CLI) | payer MEDICARE ==
[2023-04-15 14:04] LABS: ALBUMIN 3.8 G/DL (3.2-5.2); ALKALINE PHOSPHATASE 55 U/L (46-116); ALT/SGPT 27 U/L (7.0-40); AST/SGOT 19 U/L (<34); BILIRUBIN,TOTAL 0.7 MG/DL (0.3-1.2); BLOOD UREA NITROGEN 11 MG/DL (9-23); CALCIUM LEVEL 8.7 MG/DL (8.3-10.6); CARBON DIOXIDE LEVEL 29 MMOL/L (20-31); CHLORIDE LEVEL 105 MMOL/L (98-107); CHOLESTEROL LEVEL 200 MG/DL (<200); CREATININE FOR GFR 0.95 MG/DL (0.70-1.30); GLOMERULAR FILTRATION RATE > 60.0 (>49); GLUCOSE, FASTING 97 MG/DL (74-106); HDL CHOLESTEROL 48.7 MG/DL (>40); LDL CHOLESTEROL 122.7 MG/DL (<100); NON-HDL-C 151.3 MG/DL; POTASSIUM SERUM 4.6 MMOL/L (3.5-5.1); SODIUM LEVEL 142 MMOL/L (136-145); TOTAL PROTEIN 6.7 G/DL (5.7-8.2); TRIGLYCERIDES LEVEL 143 MG/DL (<150)
== END ==
LOC: M PLALAB 10:58
PROVIDERS: ATTEND Nurse Practitioner Family
DX: E78.2 Mixed hyperlipidemia (principal)

== ENCOUNTER → 2023-08-27 | Outpatient (CLI) | payer MEDICARE ==
[~2023-08-27] MED LIST changes: +DOXY100T PO
== END ==
LOC: M RAD 09:26
PROVIDERS: ATTEND Nurse Practitioner Family
DX: Z87.891 Personal history of nicotine dependence (principal)

== ENCOUNTER 2023-08-30 16:30 | Inpatient (IN) | payer MEDICARE ==
[~2023-08-30] VITALS: Ht 185.4 cm; Wt 113.0 kg
[~2023-08-30 16:30] MED LIST changes: -DOXY100T PO
[2023-08-30] MEDS ORDERED: DOXY100T PO (16:38)
[2023-08-30] MEDS ORDERED: NORCO, ANEXSIA 5/325MG TABLET (HYDROcodone/ACETAMINOPHEN) PO ONE (16:45)
[2023-08-30 21:20] LABS: BASO # 0.1 10^3/uL (0.0-0.2); BASO % 0.8 % (0.0-1.0); EOS # 0.2 10^3/uL (0.0-0.5); EOS % 2.2 % (0.0-3.0); HEMATOCRIT 39.5 % (42.0-52.0); HEMOGLOBIN 13.3 g/dl (13.5-17.5); LYMPH # 1.8 10^3/uL (1.5-5.0); LYMPH % 24.1 % (24.0-44.0); MEAN CORPUSCULAR HEMOGLOBIN 30.8 pg (27.0-33.0); MEAN CORPUSCULAR HGB CONC 33.7 g/dl (32.0-36.5); MEAN CORPUSCULAR VOLUME 91.4 fl (80.0-96.0); MONO # 0.4 10^3/uL (0.0-0.8); MONO % 4.9 % (2.0-8.0); NEUTROPHILS # 5.1 10^3/uL (1.5-8.5); NEUTROPHILS % 67.5 % (36.0-66.0); PLATELET COUNT, AUTOMATED 222 10^3/uL (150-450); RED BLOOD COUNT 4.32 10^6/uL (4.30-6.10); WHITE BLOOD COUNT 7.6 10^3/uL (4.0-10.0)
[2023-08-30 21:25] LABS: ALBUMIN 3.6 G/DL (3.2-5.2); ALKALINE PHOSPHATASE 51 U/L (46-116); ALT/SGPT 38 U/L (7.0-40); AST/SGOT 31 U/L (<34); BILIRUBIN,TOTAL 0.8 MG/DL (0.3-1.2); BLOOD UREA NITROGEN 11 MG/DL (9-23); CALCIUM LEVEL 8.7 MG/DL (8.3-10.6); CARBON DIOXIDE LEVEL 26 MMOL/L (20-31); CHLORIDE LEVEL 104 MMOL/L (98-107); CREATININE FOR GFR 0.73 MG/DL (0.70-1.30); GLOMERULAR FILTRATION RATE > 60.0 (>49); GLUCOSE, FASTING 167 MG/DL (74-106); SODIUM LEVEL 140 MMOL/L (136-145); TOTAL PROTEIN 6.7 G/DL (5.7-8.2)
[2023-08-30 21:38] LABS: RSV AMPLIFICATION NEGATIVE (NEGATIVE)
[2023-08-30] MEDS ORDERED: OMEP40CA5 PO (21:51)
[2023-08-30] MEDS ORDERED: HOME MED LIST COMPLETE! XX SCH (21:55)
[2023-08-30] MEDS ORDERED: ACETAMINOPHEN TAB 650MG DOSE (2X325MG) PO PRN (22:15)
[2023-08-30] MEDS ORDERED: MORPHINE 2 MG/ML 1ML VIAL IV PRN (22:15)
[2023-08-30 23:00] VITALS: BP 128/75; TEMP 97.9; O2SAT 97
[2023-08-30] MEDS: DOXYCYCLINE HYCLATE 100MG TABLET PO SCH (23:55)
[2023-08-31 05:11] VITALS: BP 106/63; TEMP 97.3; O2SAT 97
[2023-08-31] MEDS: HEPARIN SOD (PORCINE) 5000UNITS/ML 1ML VIAL/SYRINGE SC SCH ×3 (06:11→21:59)
[2023-08-31 06:16] LABS: HEMATOCRIT 39.9 % (42.0-52.0); HEMOGLOBIN 13.2 g/dl (13.5-17.5); MEAN CORPUSCULAR HEMOGLOBIN 30.5 pg (27.0-33.0); MEAN CORPUSCULAR HGB CONC 33.1 g/dl (32.0-36.5); MEAN CORPUSCULAR VOLUME 92.1 fl (80.0-96.0); PLATELET COUNT, AUTOMATED 210 10^3/uL (150-450); RED BLOOD COUNT 4.33 10^6/uL (4.30-6.10); WHITE BLOOD COUNT 7.5 10^3/uL (4.0-10.0)
[2023-08-31 06:50] LABS: ALBUMIN 3.5 G/DL (3.2-5.2); ALKALINE PHOSPHATASE 49 U/L (46-116); ALT/SGPT 35 U/L (7.0-40); AST/SGOT 25 U/L (<34); BILIRUBIN,TOTAL 0.7 MG/DL (0.3-1.2); BLOOD UREA NITROGEN 12 MG/DL (9-23); CALCIUM LEVEL 8.6 MG/DL (8.3-10.6); CARBON DIOXIDE LEVEL 27 MMOL/L (20-31); CHLORIDE LEVEL 106 MMOL/L (98-107); CREATININE FOR GFR 0.82 MG/DL (0.70-1.30); GLOMERULAR FILTRATION RATE > 60.0 (>49); GLUCOSE, FASTING 100 MG/DL (74-106); SODIUM LEVEL 141 MMOL/L (136-145); TOTAL PROTEIN 6.4 G/DL (5.7-8.2)
[2023-08-31] MEDS: DOXYCYCLINE HYCLATE 100MG TABLET PO SCH ×2 (09:31→20:03)
[2023-08-31 14:10] VITALS: BP 112/66; TEMP 98.1; O2SAT 94
[2023-08-31 19:31] VITALS: BP 115/67; TEMP 98.2; O2SAT 94
[2023-09-01] MEDS: HEPARIN SOD (PORCINE) 5000UNITS/ML 1ML VIAL/SYRINGE SC SCH (06:03)
[2023-09-01 06:05] VITALS: BP 118/67; TEMP 97.9; O2SAT 98
[2023-09-01] MEDS: DOXYCYCLINE HYCLATE 100MG TABLET PO SCH ×2 (09:43→23:43)
[2023-09-01] MEDS: NS 1,000 ML IV SCH ×2 (10:27→23:44)
[2023-09-01 14:00] VITALS: BP 118/69; TEMP 97.7; O2SAT 95
[2023-09-01] MEDS ORDERED: propofoL 200 MG/20 ML VIAL As Ordered ONE ×2 (17:34→22:40)
[2023-09-01] MEDS ORDERED: MIDAZOLAM INJ 2MG/2ML VIAL As Ordered ONE (17:35)
[2023-09-01] MEDS ORDERED: LIDOCAINE 2% 100MG/5ML SDV (FOR ANES.) As Ordered ONE (17:35)
[2023-09-01] MEDS ORDERED: ROCURONIUM BROMIDE 50MG/5ML VIAL As Ordered ONE ×4 (17:35→22:51)
[2023-09-01] MEDS ORDERED: ONDANSETRON 4MG 2ML VIAL As Ordered ONE (17:35)
[2023-09-01] MEDS ORDERED: fentaNYL 250 MCG/5 ML INJECTION As Ordered ONE (17:36)
[2023-09-01] MEDS ORDERED: TRANEXAMIC ACID 100 MG/ML 10ML VIAL As Ordered ONE (20:10)
[2023-09-01] MEDS ORDERED: ceFAZolin 2 GM/D5W 50 ML IV BAG As Ordered ONE (20:11)
[2023-09-01] MEDS ORDERED: ACETAMINOPHEN 1000MG 100ML IV BAG As Ordered ONE (20:27)
[2023-09-01] MEDS ORDERED: GLYCOPYRROLATE INJ 0.2 MG/ML 2 ML VIAL As Ordered ONE (20:38)
[2023-09-01] MEDS ORDERED: HYDROmorphone HCL 2MG/ML 1ML VIAL As Ordered ONE (21:22)
[2023-09-01] MEDS ORDERED: KETOROLAC 60MG 2ML VIAL As Ordered ONE (21:53)
[2023-09-01] MEDS ORDERED: VANCOMYCIN 1000MG/20ML VIAL As Ordered ONE (21:55)
[2023-09-01] MEDS ORDERED: SUGAMMADEX SODIUM 500 MG/5 ML VIAL (BRIDION) As Ordered ONE (21:56)
[2023-09-01] MEDS ORDERED: ONDANSETRON 4MG 2ML VIAL IV PRN (22:25)
[2023-09-01] MEDS ORDERED: diphenhydrAMINE 50MG/ML VIAL IV PRN (22:25)
[2023-09-01] MEDS ORDERED: MEPERIDINE 25 MG/ML 1ML VIAL IV PRN (22:25)
[2023-09-01] MEDS ORDERED: HYDROMORPHONE HCL 0.5 MG/ 0.5 ML SYRINGE IV PRN (22:25)
[2023-09-01] MEDS ORDERED: fentaNYL 100 MCG/2 ML INJECTION IV PRN (22:25)
[2023-09-01] MEDS ORDERED: oxyCODONE 5MG TAB PO PRN (22:25)
[2023-09-01] MEDS ORDERED: METOCLOPRAMIDE INJ 10MG/2ML VIAL IV PRN (22:25)
[2023-09-01] MEDS ORDERED: LR 1,000 ML IV SCH (22:25)
[2023-09-01 23:38] VITALS: BP 122/78; TEMP 98.2; O2SAT 93
[2023-09-02] VITALS: BP 117/72; TEMP 97.9; O2SAT 92
[2023-09-02 00:30] VITALS: BP 120/74; TEMP 98; O2SAT 94
[2023-09-02 06:00] VITALS: BP 118/77; TEMP 98.4; O2SAT 93
[2023-09-02] MEDS ORDERED: oxyCODONE 5MG TAB PO PRN (07:25)
[2023-09-02 07:46] LABS: BASO % 0.5 % (0.0-1.0); EOS % 0.2 % (0.0-3.0); HEMATOCRIT 37.9 % (42.0-52.0); HEMOGLOBIN 12.4 g/dl (13.5-17.5); LYMPH # 1.3 10^3/uL (1.5-5.0); LYMPH % 20.8 % (24.0-44.0); MEAN CORPUSCULAR HEMOGLOBIN 30.5 pg (27.0-33.0); MEAN CORPUSCULAR HGB CONC 32.7 g/dl (32.0-36.5); MEAN CORPUSCULAR VOLUME 93.3 fl (80.0-96.0); MONO # 0.4 10^3/uL (0.0-0.8); NEUTROPHILS # 4.4 10^3/uL (1.5-8.5); PLATELET COUNT, AUTOMATED 204 10^3/uL (150-450); RED BLOOD COUNT 4.06 10^6/uL (4.30-6.10); WHITE BLOOD COUNT 6.2 10^3/uL (4.0-10.0)
[2023-09-02 08:17] LABS: BLOOD UREA NITROGEN 14 MG/DL (9-23); CALCIUM LEVEL 8.2 MG/DL (8.3-10.6); CARBON DIOXIDE LEVEL 27 MMOL/L (20-31); CHLORIDE LEVEL 105 MMOL/L (98-107); CREATININE FOR GFR 0.97 MG/DL (0.70-1.30); GLOMERULAR FILTRATION RATE > 60.0 (>49); GLUCOSE, FASTING 110 MG/DL (74-106); MAGNESIUM LEVEL 1.9 MG/DL (1.8-2.4); POTASSIUM SERUM 4.4 MMOL/L (3.5-5.1); SODIUM LEVEL 138 MMOL/L (136-145)
[2023-09-02] MEDS ORDERED: ASPIRIN 81MG ENTERIC TABLET PO SCH (09:00)
[2023-09-02] MEDS: DOXYCYCLINE HYCLATE 100MG TABLET PO SCH (09:18)
[2023-09-02 10:00] VITALS: BP 133/73; TEMP 98.8; O2SAT 95
[2023-09-02] MEDS ORDERED: KETO10TAB PO (13:02)
[2023-09-02] MEDS ORDERED: ACET1TAB55 PO (13:02)
[2023-09-02] MEDS ORDERED: DOXY100T PO (13:02)
[2023-09-02 14:00] VITALS: BP 134/72; TEMP 98.2; O2SAT 92
== END 2023-09-02 15:30 | disposition home or self-care (01) | DRG 502 ==
LOC: M ED 16:30 → M ED INP 22:13 → ENRESERV 22:38 → M MS5PR 23:00
PROVIDERS: ADMIT Family Medicine; ATTEND Family Medicine
PROC: 0LQQ0ZZ Repair Right Knee Tendon, Open Approach (ICD-10-PCS; principal; 2023-09-01 16:30)
DX: S76.111A Strain of right quadriceps muscle, fascia and tendon, initial encounter (principal); Z87.891 Personal history of nicotine dependence; W18.40XA Slipping, tripping and stumbling without falling, unspecified, initial encounter; Y92.009 Unspecified place in unspecified non-institutional (private) residence as the place of occurrence of the external cause; Y93.9 Activity, unspecified; Y99.8 Other external cause status; K21.9 Gastro-esophageal reflux disease without esophagitis; M17.0 Bilateral primary osteoarthritis of knee; Z79.899 Other long term (current) drug therapy

== ENCOUNTER → 2024-04-15 | Outpatient (CLI) | payer MEDICARE ==
[~2024-04-15] MED LIST changes: +ACET1TAB55 PO; +DOXY100T PO; +KETO10TAB PO
[2024-04-15 14:35] LABS: ALBUMIN 3.6 G/DL (3.2-5.2); ALKALINE PHOSPHATASE 51 U/L (46-116); ALT/SGPT 31 U/L (7.0-40); AST/SGOT 19 U/L (<34); BILIRUBIN,TOTAL 0.7 MG/DL (0.3-1.2); BLOOD UREA NITROGEN 13 MG/DL (9-23); CALCIUM LEVEL 8.9 MG/DL (8.3-10.6); CARBON DIOXIDE LEVEL 31 MMOL/L (20-31); CHLORIDE LEVEL 106 MMOL/L (98-107); CHOLESTEROL LEVEL 208 MG/DL (<200); CHOLESTEROL RISK RATIO 4.84 (<5); CREATININE FOR GFR 0.85 MG/DL (0.70-1.30); GLOMERULAR FILTRATION RATE > 60.0 (>49); GLUCOSE, FASTING 96 MG/DL (74-106); HDL CHOLESTEROL 42.9 MG/DL (>40); LDL CHOLESTEROL 139.9 MG/DL (<100); NON-HDL-C 165.1 MG/DL; POTASSIUM SERUM 4.4 MMOL/L (3.5-5.1); SODIUM LEVEL 140 MMOL/L (136-145); TOTAL PROTEIN 6.5 G/DL (5.7-8.2); TRIGLYCERIDES LEVEL 126 MG/DL (<150)
== END ==
LOC: M PLALAB 10:37
PROVIDERS: ATTEND Nurse Practitioner Family
DX: E78.2 Mixed hyperlipidemia (principal)

== ENCOUNTER → 2024-04-18 | Outpatient (CLI) | payer MEDICARE | LOC: M PLALAB 10:37 | PROVIDERS: ATTEND Nurse Practitioner Family | DX: N40.0 Benign prostatic hyperplasia without lower urinary tract symptoms (principal); Z12.5 Encounter for screening for malignant neoplasm of prostate | CPT/HCPCS: 36415; G0103 ==